=== PATIENT | male | born 1960 | race Hispanic/Latino ===

== ENCOUNTER 2021-10-24 14:22 | Inpatient (IN) | payer SELFPAY ==
[2021-10-24] MEDS ORDERED: Ondansetron PF 4 MG/2 ML Vial ONE (17:11)
[2021-10-24] MEDS ORDERED: Morphine 4 MG/ML VIAL ONE ×2 (17:11→23:28)
[2021-10-24 17:35] LABS: #Monocytes 1.5 10x3/uL (0.0-1.1); #Neutrophils 13.5 10x3/uL (1.5-8.4); %Basophils 0.1 % (0.0-2.0); %Lymphocytes 4.2 % (18.0-47.0); %Monocytes 9.7 % (0.0-10.0); %Neutrophils 85.5 % (40.0-75.0); Hemoglobin 15.9 g/dL (13.5-17.5); Mean Corpuscular HGB CONC 32.1 g/dL (32.0-36.0); Mean Corpuscular Hemoglobin 26.4 pg (27.0-33.0); Mean Corpuscular Volume 82.4 fl (81.2-95.1); Mean Platelet Volume 10.1 fl (7.4-10.4); Platelet Count 236 10x3/uL (150-450); RBC Distribution Width 13.9 % (11.5-14.5); Red Blood Cell (RBC) Count 6.02 10x6/uL (4.32-5.72); White Blood Cell (WBC) Count 15.7 10x3/uL (3.5-10.5)
[2021-10-24 17:51] LABS: ALT (SGPT) 46 U/L (8-55); AST (SGOT) 38 U/L (5-34); Albumin 4.4 g/dL (3.4-4.8); Alkaline Phosphatase 78 U/L (40-110); Anion Gap 17 mmol/L (10-20); BUN (Urea Nitrogen) 14 mg/dL (8.4-25.7); Bilirubin, Total 1.2 mg/dL (0.2-1.2); Calc. Creatinine Clearance 0 mL/min (70-130); Calcium 9.8 mg/dL (7.8-10.44); Carbon Dioxide 24 mmol/L (23-31); Chloride 96 mmol/L (98-107); Globulin 4.2 g/dL (2.4-3.5); Glucose 159 mg/dL (80-115); Lipase 7 U/L (8-78); Potassium 3.9 mmol/L (3.5-5.1); Protein, Total 8.6 g/dL (5.8-8.1); Sodium 133 mmol/L (136-145)
[2021-10-24] MEDS ORDERED: Ketorolac Tromethamine 30 MG/ML VIAL ONE (17:51)
[2021-10-24] MEDS ORDERED: Senokot S 8.6-50 MG TAB PO PRN (19:16)
[2021-10-24] MEDS ORDERED: Ondansetron PF 4 MG/2 ML Vial IVP PRN (19:16)
[2021-10-24] MEDS ORDERED: Zolpidem Tartrate 5 MG TAB PO PRN (19:16)
[2021-10-24] MEDS ORDERED: Calcium Carbonate 500 MG ChewTAB PO PRN (19:16)
[2021-10-24] MEDS ORDERED: Acetaminophen 325 MG TAB PO PRN (19:16)
[2021-10-24] MEDS ORDERED: Guaifenesin DM 100-10/5 ML UDCUP PO PRN (19:16)
[2021-10-24] MEDS ORDERED: Morphine 4 MG/ML VIAL SLOW IVP PRN (19:19)
[2021-10-24] MEDS ORDERED: Piperacillin/Tazobactam 4.5 GM VIAL ONE (19:19)
[2021-10-24] MEDS ORDERED: Metoclopramide HCl 10 MG/2 ML VIAL ONE (19:19)
[2021-10-24] MEDS ORDERED: Promethazine HCl 12.5 MG in Sodium Chloride 0.9% 50 ML IVPB PRN (19:19)
[2021-10-24] MEDS ORDERED: Famotidine/PF 20 mg/2ml Vial SLOW IVP SCH (21:00)
[2021-10-25 00:59] VITALS: BMI 28.7
[2021-10-25] MEDS ORDERED: Famotidine/PF 20 mg/2ml Vial SLOW IVP SCH (01:00)
[2021-10-25] MEDS: Sodium Chloride 0.9% 1,000 ML IV SCH ×4 (01:06→21:22)
[2021-10-25 02:23] LABS: SARS-CoV-2 NAA Rapid Test Not Detected (NotDetected)
[2021-10-25] MEDS: Morphine 4 MG/ML VIAL SLOW IVP PRN ×2 (03:43→08:40)
[2021-10-25] MEDS: Piperacillin/Tazobactam 3.375 GM in Sodium Chloride 0.9% 100 ML IVPB SCH ×3 (03:45→20:32)
[2021-10-25 04:17] LABS: #Monocytes 1.6 10x3/uL (0.0-1.1); #Neutrophils 9.7 10x3/uL (1.5-8.4); %Basophils 0.2 % (0.0-2.0); %Eosinophils 0.1 % (0.0-6.0); %Monocytes 12.8 % (0.0-10.0); %Neutrophils 78.4 % (40.0-75.0); Hemoglobin 14.9 g/dL (13.5-17.5); Mean Corpuscular Hemoglobin 26.4 pg (27.0-33.0); Mean Platelet Volume 9.7 fl (7.4-10.4); Platelet Count 217 10x3/uL (150-450); RBC Distribution Width 14.4 % (11.5-14.5); Red Blood Cell (RBC) Count 5.64 10x6/uL (4.32-5.72); White Blood Cell (WBC) Count 12.3 10x3/uL (3.5-10.5)
[2021-10-25 04:40] LABS: ALT (SGPT) 1104 U/L (8-55); AST (SGOT) 1249 U/L (5-34); Albumin 3.8 g/dL (3.4-4.8); Alkaline Phosphatase 110 U/L (40-110); Anion Gap 12 mmol/L (10-20); BUN (Urea Nitrogen) 16 mg/dL (8.4-25.7); Bilirubin, Total 3.2 mg/dL (0.2-1.2); CRP (Inflammatory) 11.34 mg/dL (= or < 0.5); Calc. Creatinine Clearance 89 mL/min (70-130); Calcium 9.1 mg/dL (7.8-10.44); Carbon Dioxide 24 mmol/L (23-31); Cardiac Risk 3.3 (Less than 4.5); Chloride 100 mmol/L (98-107); Cholesterol 155 mg/dl (< 200 Desired); Globulin 3.7 g/dL (2.4-3.5); Glucose 154 mg/dL (80-115); HDL Cholesterol 47 mg/dL (>60 Neg Risk); LDL Cholesterol, Calculated 95 mg/dL; Potassium 3.8 mmol/L (3.5-5.1); Protein, Total 7.5 g/dL (5.8-8.1); Sodium 132 mmol/L (136-145); Triglycerides 63 mg/dL (Less than 150)
[2021-10-25 06:04] LABS: Bilirubin Neg (Negative); Blood, Urine 50 (Negative); Clarity Clear (Clear); Glucose, Urine (Dipstick) 50 mg/dL (Negative); Ketone, Urine 5 mg/dL (Negative); Leukocyte 25 (Negative); Nitrite Negative (Negative); Protein, Urine (Dipstick) 100 mg/dl (Neg-Trace); Specific Gravity, Urine 1.025 (1.002-1.036)
[2021-10-25 06:31] LABS: Bacteria/HPF 1+ HPF (None Seen); RBC/HPF 0-3 HPF (0-3); Squamous Epithelial None Seen HPF (0-3); WBC/HPF 0-3 HPF (0-3)
[2021-10-25] MEDS: Enoxaparin Sodium 40 MG/0.4 ML SYRINGE SC SCH ×2 (08:40→10:04)
[2021-10-25] MEDS: Famotidine/PF 20 mg/2ml Vial SLOW IVP SCH ×2 (08:40→20:28)
[2021-10-25] MEDS ORDERED: Morphine 4 MG/ML VIAL SLOW IVP SCH (10:00)
[2021-10-25 11:08] LABS: INR-International Normal Ratio 1.1; PTT 26.3 sec (22.0-33.0); Prothrombin Time 12.3 sec (9.5-12.1)
[2021-10-25] MEDS ORDERED: Scopolamine 1.5 mg/72 hour Patch ONE (11:24)
[2021-10-25] MEDS ORDERED: Midazolam HCl 2 mg/2 ml Vial ONE (11:24)
[2021-10-25] MEDS ORDERED: Lidocaine 1% PF 5 ML VIAL ONE (11:30)
[2021-10-25] MEDS ORDERED: PROPOFOL 20 ML ONE (11:30)
[2021-10-25] MEDS ORDERED: Metoclopramide HCl 10 MG/2 ML VIAL ONE (11:30)
[2021-10-25] MEDS ORDERED: Fentanyl 100 MCG/2 ML VIAL ONE ×2 (11:30→14:17)
[2021-10-25] MEDS ORDERED: Rocuronium Bromide 10 MG/ML (10ML VIAL) ONE (11:30)
[2021-10-25] MEDS ORDERED: Ondansetron PF 4 MG/2 ML Vial ONE (11:30)
[2021-10-25] MEDS ORDERED: Dexamethasone 4 mg/ml Vial ONE (11:30)
[2021-10-25] MEDS ORDERED: Ketorolac Tromethamine 30 MG/ML VIAL ONE (11:31)
[2021-10-25] MEDS ORDERED: Glycopyrrolate 0.2 MG/ML 5 ML SYRINGE ONE (11:31)
[2021-10-25] MEDS ORDERED: EPINEPHrine 1 MG/ML AMP ONE (11:36)
[2021-10-25] MEDS ORDERED: Bupivacaine 0.25% HCL 30 ML VIAL ONE (11:36)
[2021-10-25] MEDS ORDERED: Iopamidol 30 ML ONE (11:37)
[2021-10-25] MEDS ORDERED: Piperacillin/Tazobactam 3.375 GM VIAL ONE (12:07)
[2021-10-25] MEDS ORDERED: PHENYLEPHRINE-NS 100 MCG/ML 10 ML SYRINGE ONE (12:17)
[2021-10-25 13:51] LABS: Hemoglobin A1c 6.1 % (4.0-6.0)
[2021-10-25] MEDS ORDERED: SUGAMMADEX SODIUM 200 MG/2 ML VIAL ONE (13:54)
[2021-10-25] MEDS ORDERED: HYDROcodone/Acetaminophen 5/325 mg Tablet PO PRN (14:11)
[2021-10-26] MEDS: Sodium Chloride 0.9% 1,000 ML IV SCH (06:22)
[2021-10-26] MEDS: Piperacillin/Tazobactam 3.375 GM in Sodium Chloride 0.9% 100 ML IVPB SCH ×2 (06:22→11:39)
[2021-10-26] MEDS: Morphine 4 MG/ML VIAL SLOW IVP PRN (06:23)
[2021-10-26] MEDS: Enoxaparin Sodium 40 MG/0.4 ML SYRINGE SC SCH (08:48)
[2021-10-26] MEDS: Famotidine/PF 20 mg/2ml Vial SLOW IVP SCH (08:48)
[2021-10-26 16:43] VITALS: BP 157/86; TEMP 97.6
== END 2021-10-26 17:30 | disposition home or self-care (01) | DRG 418 ==
LOC: CSHERS 14:22 → OBSVTOIN 19:16 → CSHTELE 19:16 → UNDOADMOB 10-25 00:49 → CSHTELE 10-25 00:49
PROVIDERS: ADMIT Student in an Organized Health Care Education/Training Program; ATTEND Hospitalist
PROC: 0FT44ZZ Resection of Gallbladder, Percutaneous Endoscopic Approach (ICD-10-PCS; principal; 2021-10-25)
PROC: BF131ZZ Fluoroscopy of Gallbladder and Bile Ducts using Low Osmolar Contrast (ICD-10-PCS; 2021-10-25)
DX: K80.00 Calculus of gallbladder with acute cholecystitis without obstruction (principal); R65.10 Systemic inflammatory response syndrome (SIRS) of non-infectious origin without acute organ dysfunction; K76.0 Fatty (change of) liver, not elsewhere classified; Z20.822 Contact with and (suspected) exposure to COVID-19; K82.A1 Gangrene of gallbladder in cholecystitis; E86.0 Dehydration; R03.0 Elevated blood-pressure reading, without diagnosis of hypertension; F12.10 Cannabis abuse, uncomplicated
CPT/HCPCS: 36415; 47532; 80053; 80061; 81001; 83036; 83605; 83690; 84145; 85025; 85610; 85730; 86140; 88304; 93005; 96365; 96367; 96375; 96376; C1713; J0171; J1100; J1610; J1650; J1885; J2250; J2270; J2405; J2543; J2704; J2765; J3010; J3490; J7050; Q9967; S0020; S0028; U0002